=== PATIENT | male | born 1985 | race African-American/Black ===

== ENCOUNTER 2018-03-03 12:22 | Emergency (ER) | payer SELFPAY ==
[2018-03-03 12:39] VITALS: BP 134/94; PULSE 75; TEMP 98.1; BMI 32.5
--- NOTE | 2018-03-03 13:51 | PDOC ---
History of Present Illness - General Chief Complaint: Eye Problem Stated Complaint: EYE PROBLEM Time Seen by Provider: 03/03/18 12:38 History Source: Patient - History of Present Illness Timing/Duration: other Past History - Past Medical History Allergies/Adverse Reactions: Allergies Allergy/AdvReac Type Severity Reaction Status Date / Time No Known Allergies Allergy Verified 03/03/18 12:30 Home Medications: Ambulatory Orders Prednisolone 1% Ophthalmic [Pred Forte 1% -] 1 drop OP Q6H #15 dropsbtl COPD: No - Suicide/Smoking/Psychosocial Hx Smoking History: Unknown if ever smoked Review of Systems - Review of Systems Constitutional: No: Chills, Fever HEENTM: Yes: Eye Pain, Blurred Vision. No: Tearing *Physical Exam - Vital Signs Last Vital Signs Temp Pulse Resp BP Pulse Ox 98.1 F 75 18 134/94 99 03/03/18 12:32 03/03/18 12:32 03/03/18 12:32 03/03/18 12:32 03/03/18 12:32 - Physical Exam General Appearance: Yes: Appropriately Dressed. No: Apparent Distress HEENT: positive: Normal Voice, Other (cloudy L cornea (baselien sine graft), no conjunc erythema, tearing, discharge, unable to see letters on eye chart on L vs 20/25 R) Neck: positive: Supple Integumentary: positive: Dry, Warm Neurologic: positive: Fully Oriented, Alert, Normal Mood/Affect Medical Decision Making - Medical Decision Making 03/03/18 13:54 32-year-old male, s/p L corneal transplant at [facility] in 2002, no longer on steroid drops, w/ 20/40 vision to L eye since transplant, here with 2- 3 months of progressive blurry vision to b/l eye, L>R, w/ intermittent sharp pain to and swelling to L eye. Seen by a new eye doctor in [facility] recently and got new glasses. Has not been able to f/u with eye surgeon 2/2 insurance issues. Denies discharge, tearing, foreign body sensation or photophobia. No recent trauma. Patient well-appearing and stable with cloudy L cornea ( baseline since surgery), unable to see any letters on eye chart w/ L eye vs 20/ 25 [place] on the R. Case d/w Dr Palomino of optho who is concerned for possible graft rejection, rec starting pt on predforte and have pt see him on Monday for further evaluation. *DC/Admit/Observation/Transfer Diagnosis at time of Disposition: Eye pain Qualifiers: Laterality: left Qualified Code(s): H57.12 - Ocular pain, left eye - Discharge Dispostion Disposition: HOME Condition at time of disposition: Good - Prescriptions Prescriptions: Prednisolone 1% Ophthalmic [Pred Forte 1% -] 1 drop OP Q6H #15 dropsbtl - Referrals - Patient Instructions Additional Instructions: Your condition was discussed with Dr. Palomino of ophthalmology, who is concerned about possible graft rejection and recommends that you be restarted on steroids. Instill 1 drop of Pred Forte to left eye 4 times a day and make sure to shake well prior to use. Please follow-up with Dr. Palomino by calling office on Monday at [phone]. Please make staff aware that Dr. Palomino is aware of your visit and wants to see on Monday - Post Discharge Activity Forms/Work/School Notes: Back to Work
== END 2018-03-03 13:52 | disposition home or self-care (01) ==
LOC: JERFT 12:22 → JER 12:22 → JERFT 13:52
PROC: 4A07X0Z Measurement of Visual Acuity, External Approach (ICD-10-PCS; principal; 2018-03-03)
DX: H57.11 Ocular pain, right eye (principal); Z94.7 Corneal transplant status
CPT/HCPCS: 99281-25